=== PATIENT | male | born 1955 | race Caucasian/White ===

== ENCOUNTER → 2018-03-09 | Day surgery (SDC) | payer OTHER ==
[~2018-03-09] MED LIST: ACETAMINOPHEN 1000 MG/100 ML 100 ML IV ONE; BUPIVACAINE HCL PF 0.25% 30 ML VIAL ONE; KETOROLAC TROMETHAMINE 30 MG/ML (IVP) VIAL IV PUSH ONE; LACTATED RINGER'S 1000 ML INJ 1,000 ML ONE; MIDAZOLAM HCL 2 MG/2 ML VIAL ONE; ONDANSETRON HCL 4 MG/2 ML VIAL IV PUSH ONE; PROPOFOL 200 MG/20 ML AMP IV ONE; ceFAZolin 2 GM PREMIX 50 ML ONE
--- NOTE | 2018-03-09 13:23 | PD.OP ---
cc: Avery Ulloa MD Operative Report Date of Surgery: March 09, 2018 Preoperative Diagnosis: Bilateral inguinal hernia, umbilical hernia Postoperative Diagnosis: Bilateral indirect and femoral hernias, umbilical hernia Procedure: Laparoscopic repair bilateral inguinal hernia with mesh, umbilical hernia repair Anesthesia: General Surgeon: Avery Ulloa Diplomatic Courier(s): EDMAR Elizabeth Operation and Findings: This procedure was assisted by my nurse practitioner. The skill set of an FORGE HAND was medically necessary to provide improved efficiency and safety in the completion of this procedure. The medical or surgical instrument maker was at the back table providing appropriate instrumentation while the nurse practitioner directly assisted me through the entirety of the procedure. Indications for procedure Patient is a pleasant 62-year-old gentleman was developed a right groin bulge noted in early December. He has had increasing discomfort during normal activities. It is worse at the end of the day. Physical examination demonstrates bilateral inguinal hernias and a small umbilical hernia. Plans were made for operative repair. Intraoperative findings Bilateral indirect inguinal hernias with spermatic cord lipomas. Bilateral femoral hernias containing preperitoneal fat. Small umbilical hernia with preperitoneal fat. Estimated blood loss less than 3 mL. Description of procedure in detail Patient was identified as Evans Pope taken to the operating room placed in supine position. Sequential compression device were placed on bilateral lower extremities. Following induction of adequate general anesthesia the patient's lower abdomen was prepped and draped in usual sterile fashion with Betadine. A timeout procedure was performed. Following completion timeout procedure everyone's satisfaction within the room proposed infraumbilical transverse incision was made with a marking pen. Local anesthetic was infiltrated beneath this proposed incision site and around the umbilicus. Incision was carried out the scalpel. Dissection continued superiorly to lift the umbilical skin off herniated preperitoneal fatty tissue. The umbilical hernia defect approximated 1 cm in size. Attention was then turned to identification of the anterior rectus fascia in the left side. This was incised at its medial border and a preperitoneal plane was developed the surgeon 's finger directed towards the pubic symphysis. With the patient in slight Trendelenburg position preperitoneal dissecting balloon was placed in the preperitoneal space and under direct laparoscopic view inflated to a total of about 35 pumps. This allowed identification pubic symphysis bilateral Miki's ligaments and inferior epigastric vessels. The preperitoneal dissecting balloon was desufflated removed and the, and the structural balloon trocar was placed into the preperitoneal space its balloon inflated and CO2 insufflation to a level of 11 mmHg ensued. 2 infra umbilical midline 5 mm trochars were then placed in the preperitoneal space under direct laparoscopic view after incision and skin with a scalpel and infiltration of local anesthetic. Attention was turned to the left side. Blunt dissection lateral and posterior the spermatic cord was performed, and adherent peritoneal hernia sac was reduced to the base of the spermatic cord using the blunt graspers. Posterior laterally a spermatic cord lipoma was identified and reduced from the inguinal canal to the base of the spermatic cord. There is herniated fat in the from the preperitoneal space into a femoral hernia defect which was relieved. Photographs were taken. A 4 x 6" piece of atrium Prolite mesh was cut with an anterolateral slit placed around the spermatic cord intact position with the tacking device. Single tack was used to approximate the anterolateral slit on the and the inferior lateral border of Miki's ligament. A 2 x 6" piece of the Prolite mesh was then placed across the anterolateral slit and help position the tacking device placing tacks superior lateral inferior medial and superior medial. Photograph was taken to the completed repair and attention was turned to the right side. Blunt dissection lateral and posterior spermatic cord was performed. Adherent peritoneum consistent with hernia sac was reduced from the inguinal canal on the anterior medial surface of spermatic cord to the base of the spermatic cord. Posterior laterally spermatic cord lipoma was identified reduced from the inguinal canal into the preperitoneal space. Fatty tissue protruding through a femoral hernia defect was reduced using the blunt graspers. A 4 x 6" piece of atrium Prolite mesh was cut with an anterolateral slit placed around the spermatic cord and tacked position using the tacking device. Tack was placed to approximate the anterolateral slit and on the inferior lateral border of Miki's ligament. A 2 x 6" piece of the mesh was placed across the anterolateral slit and held in position with the tacking device placing tacks superior lateral inferior medial and superior medial. Photograph was taken and completed repair. Small defect in the hernia sac had been closed with a 0 PDS Endoloop. Remaining local anesthetic was placed in the preperitoneal space. Trochars were removed under direct visualization and as the preperitoneal space was desufflated inferior lateral mesh was held against the abdominal wall. Infra umbilical trocar was removed and the anterior rectus fascial incision was closed with a running 2-0 Vicryl suture. Attention was then turned to repair of the umbilical hernia defect. 3 separate inverted 0 Prolene sutures were used to approximate the umbilical hernia defect. 2-0 Vicryl was then used to reapproximate the inward projection of the umbilicus down to the fascial closure of the umbilical hernia defect. 2-0 Vicryl was placed in the deep dermis and subcutaneous tissue. The skin incisions were approximated for Monocryl subcuticular sutures. Dressings were applied with Mastisol half-inch brown Steri-Strips. Gauze and Tegaderm were placed over the umbilicus. Patient tolerated the procedure without apparent complication. Sponge needle and instrument counts were correct at the end of the case. Patient was transported to PACU in stable condition. Avery Ulloa MD March 09, 2018 13:23
== END | disposition home or self-care (01) ==
LOC: ESDC 09:42
PROVIDERS: ATTEND Surgery Trauma Surgery
DX: K40.20 Bilateral inguinal hernia, without obstruction or gangrene, not specified as recurrent (principal); K42.9 Umbilical hernia without obstruction or gangrene
CPT/HCPCS: 00750; 00840; 49585; 49650; C1727; C1781; J0131; J0690; J1885; J2250; J2405; J3010; J7120